=== PATIENT | female | born 1960 | race Caucasian/White ===

== ENCOUNTER 2016-08-18 02:52 | Emergency (ER) | payer MEDICAID ==
[~2016-08-18] VITALS: Ht 172.7 cm; Wt 89.4 kg
[~2016-08-18 02:52] MED LIST: AMOX1TAB64 PO; ATEN50TA41 PO; FLUC150T PO; HYDR-3144 PO; METR500T4 PO; MULT-82 PO
[2016-08-18 02:54] VITALS: BP 172/89
== END 2016-08-18 03:11 | disposition left against medical advice (07) ==
LOC: ED 03:05
DX: R00.0 Tachycardia, unspecified (principal); Z53.21 Procedure and treatment not carried out due to patient leaving prior to being seen by health care provider
CPT/HCPCS: 93005